=== PATIENT | female | born 1970 | race Hispanic/Latino ===

== ENCOUNTER 2022-02-04 16:58 | Emergency (ER) | payer BC ==
--- OUTSIDE RECORDS SUMMARY | 2022-02-04 17:01 | XMS REPORT | Continuity of Care Document ---
:1970 Author Organization [facility] t Address [address] [place] [address] Care Team Providers Name Role Phone MOUSTAPHA Attending Clinician Unavailable Holly IYER Attending Clinician HOLLY Attending Clinician Unavailable [id number] Attending Clinician Unavailable Payers Payer Name Policy Type Policy Number Effective Date Expiration Date S magdy BS 2 [id number] 2020 00:00:00 Problems Condition Condition Condition Status Onset Resolution Last Treating Co mments Source Name Details Category Date Date Treatment Clinician Date Hypothyroi Hypothyroi Disease Active 2020-0 K elsey dism dism 7-08 Seybold 00:00: 00 Perimenopa Perimenopa Disease Active 2020-0 K elsey usal usal 7-08 Seybold 00:00: 00 Moderate Moderate Disease Active 2020-0 Kelse y episode of episode of 7-08 Se ybold 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 Social History Social Habit Start Date Stop Date Quantity Comments Source Sex Ass[birth year] At [birth year] Yaritza Se ybold 00:00:00 00:00:00 Smoking Status Start Date Stop Date Source Tobacco smoking consumption unknown Yaritza Seybold Medications Ordered Filled Start Stop Current Ordering Indication Dosage Frequency Signature Comments Components Source Medication Medication Date Date Medication? Clinician (SIG) Name Name Bupropion 2020-09 Yes [id number] 450mg Take 1 Yaritza HCL XL 450 2-07 tablet Seybold MG OR TB24 00:00: (450 mg 00 total) by mouth daily Terbinafine 2020-09- No [id number] 250mg Take 1 Yaritza HCl 250 MG 10-26 tablet Seybol d oral Tablet 00:00: 05:59 (250 mg 00 :00 total) by mouth daily Bupropion 2020- No [id number] 300mg Take 1 Yaritza HCL XL 300 05-11 tablet Seybol d MG OR TB24 00:00: 00:00 (300 mg 00 :00 total) by mouth daily DEPUTY HEAD Thyroid Yes [id number] 1{tbl} Take 1 Yaritza 15 MG oral 6-25 tablet by Seyb old Tablet 00:00: mouth 00 every morning DEPUTY HEAD Thyroid Yes [id number] 1{tbl} Take 1 Yaritza 60 MG oral 6-15 tablet by Seyb old Tablet 00:00: mouth 00 every morning Vital Signs Vital Name Observation Time Observation Value Comments Source Systolic blood pressure 2021-08-25 15:39:00 110 mm[Hg] Yaritza Seybold Diastolic blood 2021-08-25 15:39:00 70 mm[Hg] Kelse y Seybold pressure Heart rate 2021-08-25 15:39:00 80 /min Yaritza Victoria albrechtbolouise Body temperature 2021-08-25 15:39:00 36.67 Sejal Jaqueline ambrocio Seybold Respiratory rate 2021-08-25 15:39:00 18 /min Jaqueline albrecht Seybold Body weight 2021-08-25 15:39:00 68.04 kg Yaritza Victoria albrechtbolouise BMI 2021-08-25 15:39:00 25.30 kg/m2 Yaritza ashby Procedures This patient has no known procedures. Encounters Start End Encounter Admission Attending Care Care Encounter Source Date/Time Date/Time Type Type Clinicians Facility Department ID 2021-09-01 2021-09-01 Outpatient NICOLE FERRO [id number] Yaritza 00:00:00 00:00:00 MD Joe MILAN 2021-08-25 2021-08-25 Office WAYNE Barrera [id number] Yaritza 09:30:00 10:00:00 Visit Nunu [id number] Leonidas [id number] 2021-08-23 2021-08-23 Outpatient YARITZA BARRERA [id number] Yaritza 00:00:00 00:00:00 NUNU Seyb old 2021-06-20 2021-06-20 Outpatient BARRERA, YARITZA FERRO [id number] Yaritza 00:00:00 00:00:00 NUNU Seyb old 2021-06-09 2021-06-09 Outpatient BARRERAYARITZA [id number] Yaritza 00:00:00 00:00:00 NUNU Seyb old 2021-05-11 2021-05-11 Outpatient BARRERAYARITZA [id number] Yaritza 13:30:00 13:30:00 NUNU Seyb old 2021-04-09 2021-04-[address] [id number] Yaritza 00:00:00 00:00:00 MD KAYLI Seybol d 2021-04-07 2021-04-07 Outpatient YARITZA BARRERA [id number] Yaritza 00:00:00 00:00:00 NUNU Seyb old 2021-03-26 2021-03-26 Outpatient LAB47 YARITZA FERRO [id number] Yaritza 12:00:00 12:00:00 Seybol d 2021-03-26 2021-03-26 Outpatient YARITZA BARRERA [id number] Yaritza 11:00:00 11:00:00 NUNU Seyb old Results This patient has no known results.
[2022-02-04] MEDS ORDERED: NA CHLORIDE 0.9% 1,000 ML ONE (17:36)
[2022-02-04 17:58] LABS: Absolute Lymphocytes (CBC) 1.3 K/uL (0.7-4.9); Lymphocytes % 18.3 % (15.3-44.8); MPV 8.2 fL (7.6-11.3); RBC Red Blood Cell Count 4.22 M/uL (3.86-4.86)
[2022-02-04 17:59] LABS: Protime INR 0.9
[2022-02-04 18:19] LABS: Urine Blood 2+ (Negative); Urine Glucose Negative (Negative); Urine Protein Negative (Negative); Urine Specific Gravity <=1.005 (1.005-1.030)
[2022-02-04 18:19] LABS: ALT/SGPT 21 U/L (12-78); AST/SGOT 11 U/L (15-37); Albumin 3.7 g/dL (3.4-5.0); Alkaline Phosphatase 88 U/L (45-117); BUN Blood Urea Nitrogen 10 mg/dL (7-18); Bicarbonate 24 mmol/L (21-32); Bilirubin Total 0.1 mg/dL (0.2-1.0); Glomerular Filtration Rate 59 ml/min (=/>90); Glucose Level 109 mg/dL (74-106); Magnesium 2.6 mg/dL (1.8-2.4); NT PRO-BNP 146 pg/mL (<125); Potassium 3.8 mmol/L (3.5-5.1); Protein, Total 7.9 g/dL (6.4-8.2); Sodium Level 139 mmol/L (136-145); Troponin High Sensitivity 4.3 pg/mL (<58.9)
[2022-02-04 18:20] LABS: Bilirubin Direct < 0.1 mg/dL (0-0.2)
--- NOTE | 2022-02-04 19:01 | RAD REPORT ---
EXAM DESCRIPTION: RAD - Chest Single View - 02/04/2022 6:23 pm CLINICAL HISTORY: COUGH Chest pain. COMPARISON: Chest Pa And Lat (2 Views) dated 11/20/2021 FINDINGS: Portable technique limits examination quality. The lungs are grossly clear. The heart is normal in size. No displaced fractures. IMPRESSION: No acute intrathoracic process suspected.
--- NOTE | 2022-02-04 19:45 | RAD REPORT ---
EXAM DESCRIPTION: CT - Head Brain Wo Cont - 02/04/2022 7:37 pm CLINICAL HISTORY: Headache, new or worsening COMPARISON: No comparisons TECHNIQUE: All CT scans are performed using dose optimization technique as appropriate and may inclu de automated exposure control or mA/KV adjustment according to patient size. FINDINGS: No intracranial hemorrhage, hydrocephalus or extra-axial fluid collection.No areas of brai n edema or evidence of midline shift. The paranasal sinuses and mastoids are clear. The calvarium is intact. IMPRESSION: No acute intracranial abnormality.
--- NOTE | 2022-02-04 19:47 | RAD REPORT ---
EXAM DESCRIPTION: CT - Chest For Pe Angio - 02/04/2022 7:38 pm CLINICAL HISTORY: Chest pain. dyspnea COMPARISON: No comparisons TECHNIQUE: CT angiogram of the pulmonary arteries was performed with MIP. All CT scans are performed using dose optimization technique as appropriate and may include automated exposure control or mA/KV adjustment according to patient size. FINDINGS: No evidence of pulmonary thromboembolism. No acute aortic finding demonstrated. The lungs are clear. No significant pericardial or pleural fluid. No concerning bony finding. IMPRESSION: No evidence of pulmonary thromboembolism. No acute lung findings.
--- NOTE | 2022-02-04 19:52 | ER ---
Nurse's Notes [facility] Name: Viki Raya Age: 51 yrs Sex: Female : 1970 Arrival Date: 02/04/2022 Time: 16:59 Bed 19 Private MD: Diagnosis: Palpitations;Weakness Presentation: 02/04 17:11 Chief complaint: Patient states: feeling really strange from the back of her head, and iw feels like her heart is beating really fast, and has been to Dr. Forte for severe vaginal bleeding and he has been monitoring her blood count, is scheduled for an ablation next week, is also on 3 control pills to help with the bleeding . pt describes the sensation to the back of her head like tenderness and tightness through her neck started around 2 am. Coronavirus screen: At this time, the client does not indicate any symptoms associated with coronavirus-19. Ebola Screen: Patient negative for fever greater than or equal to 101.5 degrees Fahrenheit, and additional compatible Ebola Virus Disease symptoms Patient denies exposure to infectious person. Patient denies travel to an Ebola-affected area in the 21 days before illness onset. No symptoms or risks identified at this time. Initial Sepsis Screen: Does the patient meet any 2 criteria? No. Patient's initial sepsis screen is negative. Does the patient have a suspected source of infection? No. Patient's initial sepsis screen is negative. Risk Assessment: Do you want to hurt yourself or someone else? Patient reports no desire to harm self or others. Onset of symptoms was February 04, 2022. 17:11 Method Of Arrival: Ambulatory iw 17:11 Acuity: DERRICK 3 iw Historical: - Allergies: 17:15 No Known Allergies; iw - Home Meds: 17:15 bupropion HCl 450 mg Oral Tb24 1 tab once daily [Active]; [place] Thyroid 60 mg Oral tab iw 1 tab once daily [Active]; - PMHx: 17:55 Hypothyroidism; ap3 - PSHx: 17:15 pounctured uterus; tubal ligation; Cholecystectomy; iw - Immunization history:: Client reports having NOT received the Covid vaccine. - Social history:: Smoking status: Patient denies any tobacco usage or history of. - Family history:: not pertinent. Screenin:54 Abuse screen: Denies threats or abuse. Nutritional screening: No deficits noted. ap3 Tuberculosis screening: No symptoms or risk factors identified. Fall Risk None identified. Assessment: 17:54 General: Appears in no apparent distress. comfortable, Behavior is calm, cooperative, ap3 appropriate for age. General: Reports feeling like something is off. Pain: Denies pain. Neuro: Level of Consciousness is awake, alert, obeys commands, Oriented to person, place, time, situation, Gait is steady, Speech is normal, Facial symmetry appears normal. Cardiovascular: Reports palpitations, Patient's skin is warm and dry. Respiratory: Airway is patent Respiratory effort is even, unlabored. 18:12 General: Reports xray at the bedside. ap3 20:40 Reassessment: No changes from previously documented assessment. Patient and/or family sm5 updated on plan of care and expected duration. Pain level reassessed. Vital Signs: 17:11 BP 151 / 75; Pulse 94; Resp 16; Temp 99.3; Pulse Ox 100% on R/A; iw 17:57 BP 137 / 61; Pulse 83; Pulse Ox 100% on R/A; ap3 18:32 BP 135 / 57; Pulse 83; Pulse Ox 100% on R/A; ap3 20:40 BP 129 / 60; Pulse 79; Resp 17; Pulse Ox 100% on R/A; sm5 Vishnu Coma Score: 19:19 Eye Response: spontaneous(4). Verbal Response: oriented(5). Motor Response: obeys boris commands(6). Total: 15. ED Course: 16:59 Patient arrived in ED. as 17:15 Triage completed. iw 17:16 Arm band placed on. iw 17:24 Chidi Parker MD is Attending Physician. boris 17:27 Ivon Jama, RN is Primary Nurse. ap3 17:42 Bed in low position. Call light in reach. Side rails up X 1. Door closed. Noise mb7 minimized. Warm blanket given. 17:42 Inserted saline lock: 20 gauge in right antecubital area, using aseptic technique. mb7 Blood collected. 17:53 EKG done, by ED staff, reviewed by Chidi Parker MD. mb7 18:25 XRAY Chest (1 view) In Process Unspecified. EDMS 19:39 CT Head Brain wo Cont In Process Unspecified. EDMS 19:40 CT Chest For PE Angio In Process Unspecified. EDMI 19:50 Yung Forte MD is Referral Physician. [facility] Administered Medications: 17:39 Drug: NS 0.9% 1000 ml Route: IV; Rate: 125 ml/hr; Site: right antecubital; ap3 20:41 Follow up: IV Status: Completed infusion; IV Intake: 300ml 5 Medication: 17:54 VIS not applicable for this client. ap3 Intake: 20:41 IV: 300ml; Total: 300ml. [facility] Outcome: 19:50 Discharge ordered by . [facility] 20:41 Patient left the ED. [facility] Signatures: Dispatcher [employer] EDMI Chidi Parker MD MD cha Martinez, Amelia as Williams, Irene, RN Ivon Klein RN RN [facility] Cinthya Izaguirre [facility] Loraine Anaya RN RN 5
--- NOTE | 2022-02-04 19:52 | EDPHYS ---
Physician Documentation [facility] Name: Viki Raya Age: 51 yrs Sex: Female : 1970 Arrival Date: 02/04/2022 Time: 16:59 Bed 19 Private MD: ED Physician Chidi Parker HPI: 02/04 19:16 This 51 yrs old Female presents to ER via Ambulatory with complaints of boris Doesn't Feel Right. 19:16 The patient complains of pain to the forehead, left frontal area and right frontal boris area. The patient describes the headache as aching. Onset: The symptoms/episode began/occurred 2 day(s) ago. The patient presents with a history of heart racing, heart skipping beats. Context: The symptoms occur at rest. Onset: The symptoms/episode began/occurred 2 day(s) ago. Duration: The patient or guardian reports multiple episodes, with no pattern. Modifying factors: The symptoms are aggravated by nothing. The symptoms are alleviated by nothing. singleton, weak, non focal, ppalpitations. Severity of symptoms: At its worst the pain was mild, in the emergency department the pain is unchanged. Historical: - Allergies: 17:15 No Known Allergies; iw - Home Meds: 17:15 bupropion HCl 450 mg Oral Tb24 1 tab once daily [Active]; [place] Thyroid 60 mg Oral tab iw 1 tab once daily [Active]; - PMHx: 17:55 Hypothyroidism; ap3 - PSHx: 17:15 pounctured uterus; tubal ligation; Cholecystectomy; iw - Immunization history:: Client reports having NOT received the Covid vaccine. - Social history:: Smoking status: Patient denies any tobacco usage or history of. - Family history:: not pertinent. ROS: 19:16 Constitutional: Negative for fever, chills, and weight loss, Eyes: Negative for injury, boris pain, redness, and discharge, ENT: Negative for injury, pain, and discharge, Neck: Negative for injury, pain, and swelling, Cardiovascular: Negative for chest pain, palpitations, and edema, Respiratory: Negative for shortness of breath, cough, wheezing, and pleuritic chest pain, Abdomen/GI: Negative for abdominal pain, nausea, vomiting, diarrhea, and constipation, Back: Negative for injury and pain, : Negative for injury, bleeding, discharge, and swelling, MS/Extremity: Negative for injury and deformity, Skin: Negative for injury, rash, and discoloration, Neuro: Negative for headache, weakness, numbness, tingling, and seizure, Psych: Negative for depression, anxiety, suicide ideation, homicidal ideation, and hallucinations, Allergy/Immunology: Negative for hives, rash, and allergies, Endocrine: Negative for neck swelling, polydipsia, polyuria, polyphagia, and marked weight changes, Hematologic/Lymphatic: Negative for swollen nodes, abnormal bleeding, and unusual bruising. Exam: 19:16 Constitutional: This is a well developed, well nourished patient who is awake, alert, obris and in no acute distress. Head/Face: Normocephalic, atraumatic. Eyes: Pupils equal round and reactive to light, extra-ocular motions intact. Lids and lashes normal. Conjunctiva and sclera are non-icteric and not injected. Cornea within normal limits. Periorbital areas with no swelling, redness, or edema. ENT: Nares patent. No nasal discharge, no septal abnormalities noted. Tympanic membranes are normal and external auditory canals are clear. Oropharynx with no redness, swelling, or masses, exudates, or evidence of obstruction, uvula midline. Mucous membranes moist. Neck: Trachea midline, no thyromegaly or masses palpated, and no cervical lymphadenopathy. Supple, full range of motion without nuchal rigidity, or vertebral point tenderness. No Meningismus. Chest/axilla: Normal chest wall appearance and motion. Nontender with no deformity. No lesions are appreciated. Cardiovascular: Regular rate and rhythm with a normal S1 and S2. No gallops, murmurs, or rubs. Normal PMI, no JVD. No pulse deficits. Respiratory: Lungs have equal breath sounds bilaterally, clear to auscultation and percussion. No rales, rhonchi or wheezes noted. No increased work of breathing, no retractions or nasal flaring. Abdomen/GI: Soft, non-tender, with normal bowel sounds. No distension or tympany. No guarding or rebound. No evidence of tenderness throughout. Back: No spinal tenderness. No costovertebral tenderness. Full range of motion. Skin: Warm, dry with normal turgor. Normal color with no rashes, no lesions, and no evidence of cellulitis. MS/ Extremity: Pulses equal, no cyanosis. Neurovascular intact. Full, normal range of motion. Neuro: Awake and alert, GCS 15, oriented to person, place, time, and situation. Cranial nerves II-XII grossly intact. Motor strength 5/5 in all extremities. Sensory grossly intact. Cerebellar exam normal. Normal gait. Psych: Awake, alert, with orientation to person, place and time. Behavior, mood, and affect are within normal limits. 19:16 ECG was reviewed by the Attending Physician. 19:16 Musculoskeletal/extremity: Circulation is intact in all extremities. Sensation intact. Compartment Syndrome exam of affected extremity: is normal. Joints: All joints appear normal with full range of motion. Weight bearing: able to fully bear weight, DVT Exam: No signs of deep vein thrombosis. no pain, no swelling, no tenderness, negative Homans' sign noted on exam, no appreciated bluish discoloration, no erythema, no increased warmth. Vital Signs: 17:11 BP 151 / 75; Pulse 94; Resp 16; Temp 99.3; Pulse Ox 100% on R/A; iw 17:57 BP 137 / 61; Pulse 83; Pulse Ox 100% on R/A; ap3 18:32 BP 135 / 57; Pulse 83; Pulse Ox 100% on R/A; ap3 20:40 BP 129 / 60; Pulse 79; Resp 17; Pulse Ox 100% on R/A; sm5 Vishnu Coma Score: 19:19 Eye Response: spontaneous(4). Verbal Response: oriented(5). Motor Response: obeys boris commands(6). Total: 15. MDM: 17:24 Patient medically screened. boris 19:19 Differential diagnosis: epidural hematoma, arrythmia, dehydration, hypertensive boris headache, hyponatremia, migraine, sinusitis, tension headache, vasomotor headache. Data reviewed: vital signs, nurses notes, lab test result(s), EKG, radiologic studies, CT scan, plain films. Data interpreted: library associate: rate is 83 beats/min, rhythm is regular, Pulse oximetry: on room air is 100 %. Test interpretation: by ED physician or midlevel provider: ECG, plain radiologic studies. Counseling: I had a detailed discussion with the patient and/or guardian regarding: the historical points, exam findings, and any diagnostic results supporting the discharge/admit diagnosis, lab results, radiology results, the need for outpatient follow up, for definitive care, a family practitioner, an OB/Gyne specialist. 02/04 17:26 Order name: Basic Metabolic Panel; Complete Time: 18:23 [facility] 02/04 17:26 Order name: CBC with Diff; Complete Time: 18:24 [facility] 02/04 17:26 Order name: LFT's; Complete Time: 18:24 [facility] 02/04 17:26 Order name: Magnesium; Complete Time: 18:24 [facility] 02/04 17:26 Order name: NT PRO-BNP; Complete Time: 18:24 [facility] 02/04 17:26 Order name: PT-INR; Complete Time: 18:24 [facility] 02/04 17:26 Order name: Troponin HS; Complete Time: 18:24 [facility] 02/04 17:26 Order name: XRAY Chest (1 view); Complete Time: 19:08 [facility] 02/04 17:26 Order name: EKG; Complete Time: 17:27 [facility] 02/04 17:26 Order name: TSH; Complete Time: 18:24 [facility] 02/04 18:20 Order name: Urine Dipstick-Ancillary; Complete Time: 18:24 [facility] 02/04 19:03 Order name: CT Head Brain wo Cont; Complete Time: 19:50 [facility] 02/04 19:08 Order name: CT Chest For PE Angio; Complete Time: 19:50 [facility] 02/04 17:26 Order name: Cardiac monitoring; Complete Time: 17:57 [facility] 02/04 17:26 Order name: EKG - Nurse/Tech; Complete Time: 17:53 [facility] 02/04 17:26 Order name: IV Saline Lock; Complete Time: 17:42 [facility] 02/04 17:26 Order name: Labs collected and sent; Complete Time: 17:53 [facility] 02/04 17:26 Order name: O2 Per Protocol; Complete Time: 17:39 [facility] 02/04 17:26 Order name: O2 Sat Monitoring; Complete Time: 17:39 [facility] 02/04 17:26 Order name: Urine Dipstick-Ancillary (obtain specimen); Complete Time: 18:20 boris EC:16 Rate is 87 beats/min. Rhythm is regular. QRS [place] is Normal. NE interval is normal. QRS boris interval is normal. QT interval is normal. No Q waves. T waves are Normal. No ST changes noted. Clinical impression: Normal ECG and No evidence of ischemia. Interpreted by me. Reviewed by me. Administered Medications: 17:39 Drug: NS 0.9% 1000 ml Route: IV; Rate: 125 ml/hr; Site: right antecubital; ap3 20:41 Follow up: IV Status: Completed infusion; IV Intake: 300ml [facility] Disposition: 19:19 Co-signature as Attending Physician, Chidi Parker MD. [facility] Disposition Summary: 02/04/22 19:50 Discharge Ordered Location: Home boris Problem: new boris Symptoms: have improved boris Condition: Stable boris Diagnosis - Palpitations boris - Weakness boris Followup: boris - With: Private Physician - When: 2 - 3 days - Reason: Recheck today's complaints, Continuance of care, Re-evaluation by your physician Followup: boris - With: - When: 2 - 3 days - Reason: Recheck today's complaints, Re-evaluation by your physician Discharge Instructions: - Discharge Summary Sheet boris - Palpitations boris - Weakness boris - Weakness, [id number] boris - Palpitations, [id number] boris Forms: - Medication Reconciliation Form boris - Thank You Letter boris - Antibiotic Education boris - Prescription Opioid Use boris Signatures: Dispatcher [employer] Chidi Alves MD MD cha Williams, Irene, Ivon Klein RN, RN RN [email or web address] Randa Valdivia PA PA sb3 Loraine Anaya RN 5
[2022-02-04 20:48] VITALS: TEMP 99.3; O2SAT 100
[2022-02-04 20:52] VITALS: BP 129/60
--- NOTE | 2022-02-06 11:08 | EKG ---
Test Date: 2022-02-04 Test Time: 17:47:12 Visitor Services Assistant: MB MEASUREMENT RESULTS: Intervals: Rate: 87 AZ: 146 QRSD: 82 QT: 364 QTc: 438 Rector: P: 80 AZ: 146 QRS: 66 T: 79 INTERPRETIVE STATEMENTS: Normal sinus rhythm Normal ECG No previous ECG available for comparison Electronically Signed On 02-06-22 11:07:00 CDT by Karl Cheney
== END 2022-02-04 20:41 | disposition home or self-care (01) ==
LOC: ER 16:58
DX: R00.2 Palpitations (principal); R53.1 Weakness; R51.9 Headache, unspecified; E03.9 Hypothyroidism, unspecified
CPT/HCPCS: 96361; 93005; 85025; 80048; 36415; 83735; 85610; 80076; 84443; 81003; 84484; 83880; 70450; 71275; 71045; 96360; 99284; Q9967; J7030

== ENCOUNTER 2022-02-09 06:12 | Day surgery (SDC) | payer BC ==
[2022-02-08 12:06] LABS: Absolute Lymphocytes (CBC) 1.2 K/uL (0.7-4.9); Hematocrit 41.7 % (36.0-45.0); Lymphocytes % 18.4 % (15.3-44.8); MPV 7.7 fL (7.6-11.3); RBC Red Blood Cell Count 4.38 M/uL (3.86-4.86)
[2022-02-08 12:19] LABS: Urine Bacteria <20 /HPF (<20); Urine RBC LOADED /HPF (NONE SEEN)
--- NOTE | 2022-02-08 14:31 | PREOPHP ---
Date of Admission: 02/09/2022 History Of Present Illness: This is a 51-year-old female with preop diagnosis of dysfunctional uteri ne bleeding, unresponsive to medical treatment. The patient has tried pills, shots, a lot of differe nt things. Had an IUD in the past and had perforated uterus, so she does not want to try an IUD, alt yany she knows that it is still a complication of the procedure we were doing tomorrow. Infection; blood loss; anesthetic complications; injury to bladder, bowel, ureter; postoperative complications; clots in legs; pneumonia discussed. The patient knows fully well this does not constitute all of the possible problems that could occur during or following surgery and knows that surgery is not a guara ntee of alleviation of her symptoms. Family History: Paternal grandfather with stomach cancer, maternal grandmother with a heart attack, father and aunt with diabetes, several people in the family with hypertension. Medications: The patient is on [place] Thyroid. She is taking bupropion 450 mg a day, but is withdra wing from that down to 300 mg a day. She is on several different vitamins. Allergies: SHE HAS NO ALLERGIES. Past Surgical History: She has had breast augmentation, gallbladder, tubal sterilization, and an att empt to put in an IUD that resulted in perforated uterus, but no problems after that. Physical Examination: HEENT: Clear. Pupils equal, round, and reactive to light and accommodation. Conjunctivae well perf used. No oral, lingual, or buccal lesions. Chest and Lungs: Clear. Heart: Without murmurs, thrills, heaves, rubs. Breasts: Not examined. Abdomen: Scaphoid. LKKS not palpable. Extremities: Clear without edema, cyanosis, or clubbing. Pelvic Exam: Uterus is normal size, freely mobile. Both adnexa clear. The patient is bleeding toda y, but less than she has previously. Assessment And Plan: Was in the emergency room last week. Had a CAT scan of her head for headaches. They figured out it was probably withdrawal from the Wellbutrin going from 450 down to 300. She is still on the Wellbutrin at 300 and having no problems at this point. Dysfunctional uterine bleeding for hysteroscopy, MyoSure, ablation. DARLING/MONTEZ Voice ID: [id number]
[2022-02-09] MEDS ORDERED: Ringers Lactate 1,000 ML IV ONE (06:49)
[2022-02-09] MEDS ORDERED: CEFAZOLIN SODIUM 1 GM/VIAL ONE (06:49)
[2022-02-09] MEDS ORDERED: SILVER NITRATE 1 APPL TOP ONE (07:08)
[2022-02-09] MEDS ORDERED: propofoL 200 MG/20 ML VIAL IV ONE (07:22)
[2022-02-09] MEDS ORDERED: FENTANYL CITR 100 MCG/2 ML ONE (07:23)
[2022-02-09] MEDS ORDERED: MIDAZOLAM HCL 2 MG/2 ML INJ ONE (07:23)
[2022-02-09 07:26] LABS: Urine Appearance SL CLOUDY (Clear); Urine Color DK YELLOW (Yellow); Urine Glucose NEGATIVE (Negative); Urine Specific Gravity 1.015 (1.005-1.030)
[2022-02-09] MEDS ORDERED: ONDANSETRON 4 MG/2 ML VIAL ONE ×2 (07:26→08:55)
[2022-02-09 07:27] LABS: Urine Bilirubin NEGATIVE (Negative); Urine Blood 3+ (Negative); Urine Microscopic Reflex ORDER UMIC; Urine Protein 1+ (Negative); Urine Urobilinogen 0.2 mg/dL (0.2-1.0)
[2022-02-09] MEDS ORDERED: dexAMETHasone 10 MG/ML VIAL ONE (07:27)
[2022-02-09 07:34] LABS: Urine Bacteria <20 /HPF (<20); Urine RBC LOADED /HPF (NONE SEEN)
[2022-02-09] MEDS ORDERED: LIDOCAINE 1% MPF 5 ML VIAL ONE (07:40)
[2022-02-09] MEDS ORDERED: MEPERIDINE HCL 25 MG/ML SYR ONE ×2 (08:47→09:22)
[2022-02-09] MEDS: HYDROMORPHONE HCL 1 MG/ML INJ ONE ×2 (08:54→08:59)
[2022-02-09] MEDS ORDERED: KETOROLAC 30 MG/ML INJ ONE (09:05)
[2022-02-09] MEDS ORDERED: IBUPROFEN 200 MG TAB PO ONE (10:06)
[2022-02-09] MEDS ORDERED: IBUPROFEN 400 MG TAB ONE (10:06)
[2022-02-09 10:16] VITALS: BP 122/60; TEMP 96
[2022-02-09] MEDS ORDERED: HYDROCODONE/APAP 10/325 TAB ONE (10:50)
[2022-02-09 11:45] VITALS: O2SAT 100
--- NOTE | 2022-02-10 08:30 | DS ---
Date of Discharge: 02/09/2022 Hospital Course: The patient underwent hysteroscopy, MyoSure and ablation. Large endometrial polyp was removed as well as several smaller polyps. Estimated blood loss 75 cc or less. The setting on e NovaSure was 6 length, 4.7 width, power setting 155, time 1 minute 33 seconds. Pathology is pendin g, but endometrial biopsy done prior to the procedure was negative for any type of malignant or jasmin lignant changes. Final Diagnoses: Dysfunctional uterine bleeding, perimenopausal, hysteroscopy, MyoSure ablation, rem oval of endometrial polyps. DARLING/MONTEZ Voice ID: [id number] Report ID: [id number]
--- NOTE | 2022-02-10 08:34 | OP ---
Surgeon: Yung Forte MD Preoperative Diagnoses: Dysfunctional uterine bleeding, endometrial biopsy negative and unresponsive to medical treatment. Description Of Procedure: Full discussion about the procedure including infection; blood loss; anest hetic complications; injury to bladder, bowel, ureter; postoperative complications; clots in legs and pneumonia. The patient knows fully well this does not constitute all the possible problems that cou ld occur during or following surgery and knows we cannot guarantee efficacy of the procedure. Genera l anesthesia, endotracheal intubation. Time-out was performed. The uterus sounded to approximately 7 cm. Small dilators were used and then hysteroscopy was performed. Large endometrial polyp was not ed coming from the patient's left fundal area close to the tubal ostia. After hysteroscopy was perfo rmed, MyoSure was performed. This polyp was removed and several other smaller polyps were all remove d. A thorough MyoSure procedure was done. At this point, endometrial ablation was performed. The f irst 2 instruments malfunctioned secondary to inadequate contact as there was a little bit more bleed ing than normal, but nothing significant. The third device was effective and we got a good burn for 92 seconds. Length 6, width 4.7, power setting 155. All procedures were discontinued. Minimal blee ding was seen. Tenaculum was removed. The patient will be sent to the recovery room. Final Diagnoses: Dysfunctional uterine bleeding. Hysteroscopy discovering several endometrial polyp s, 1 large polyp. MyoSure with removal of all polyps. Endometrial ablation. DARLING/WILFREDOL Voice ID: [id number] Report ID: [id number]
== END 2022-02-09 11:10 | disposition home or self-care (01) ==
LOC: OR 06:12
PROVIDERS: ATTEND Specialist
PROC: 0U5B8ZZ Destruction of Endometrium, Via Natural or Artificial Opening Endoscopic (ICD-10-PCS; principal; 2022-02-09 07:30)
PROC: 0UB98ZX Excision of Uterus, Via Natural or Artificial Opening Endoscopic, Diagnostic (ICD-10-PCS; 2022-02-09 07:30)
DX: N93.8 Other specified abnormal uterine and vaginal bleeding (principal); N92.4 Excessive bleeding in the premenopausal period; N84.0 Polyp of corpus uteri
CPT/HCPCS: 87088; 85025; 87086; 36415; 86900; 86850; 81025; 85610; 86901; 88305; 85730; 81015; 58563; 58558; J2704; J2250; J3010; J1100; J2175 ×2; J1170; J7120; J2405 ×2; J0690; 81003